=== PATIENT | female | born 1970 | race Caucasian/White ===

== ENCOUNTER 2017-07-06 10:39 | Emergency (ER) | payer OTHER ==
[~2017-07-06] VITALS: Ht 175.3 cm; Wt 98.9 kg
[~2017-07-06 10:39] MED LIST: ACETAMINOPHEN-1 EAC1 PO; ADDERALL 30 MG30 MG PO; ADVAIR; ADVAIR 250-501 EACH IH; ALLEGRA60 MG PO; ALTOPREV; ALTOPREV20 MG PO; AMBIEN 10 MG TA10 MG PO; AZITHROMYCIN 2250 MG PO; BACTRIM DS TAB1 EACH PO; CIPROFLOXACIN500 M1 PO; CIPROFLOXACIN500 M3 OR; CLEOCIN HCL300 MG PO; CLONAZEPAM; CRUTCH1 EACH MC; CYCLOBENZAPRINE10 MG; DOXEPIN 10 MG C10 M1; DOXYCYCLINE 10100 MG PO; FLAGYL500 MG PO; HYDROCODON-ACE1 EAC7 PO; IMITREX 50 MG T50 M1; KEFLEX500 MG PO; LAMICTAL XR200 MG PO; LIORESAL 10 MG10 MG PO; LUNESTA3 MG PO; MEDROL DOSPAK21 TA1 PO; NAPROSYN500 MG PO; NEURONTIN 300300 M1 PO; NORCO 5-325 TA1 EACH PO; NORCO 7.5-3251 EACH PO; PERCOCET 5-3251 EACH PO; PROAIR HFA8.5 GM IH; PROTONIX40 M2 PO; PYRIDIUM200 MG PO; REMERON30 M1; SEROQUEL XR 30300 M1 PO; SINGULAIR 10 MG10 M1 PO; TRILEPTAL 300300 MG PO; TRILEPTAL300 MG/5 M PO; ULTRAM50 MG PO; VALIUM5 MG PO; XANAX 0.5 MG0.5 M1 PO; XANAX XR1 MG; ZOFRAN ODT4 MG PO; ZOLOFT100 MG PO; ZYRTEC10 M2 PO
[2017-07-06 10:59] LABS: URINE BILIRUBIN NEGATIVE (Negative); URINE BLOOD NEGATIVE (Negative); URINE CLARITY CLEAR; URINE COLOR YELLOW; URINE GLUCOSE-RANDOM NEGATIVE (Negative); URINE KETONES NEGATIVE (Negative); URINE LEUKOCYTES-REFLEX NEGATIVE (Negative); URINE NITRITE-REFLEX NEGATIVE (Negative); URINE PROTEIN NEGATIVE (Negative); URINE UROBILINOGEN 0.2 E.U./dl (0.2-1.0)
[2017-07-06 11:43] LABS: ABSOLUTE BASOPHILS 0.1 thou/uL (0.0-0.2); ABSOLUTE EOSINOPHILS 0.2 thou/uL (0.0-0.7); ABSOLUTE LYMPHOCYTES 2.1 thou/uL (0.8-5.3); ABSOLUTE MONOCYTES 0.5 thou/uL (0.0-1.2); ABSOLUTE NEUTROPHILS 4.5 thou/uL (1.6-8.1); BASOPHILS 1.3 %; EOSINOPHILS 2.7 %; HEMOGLOBIN 14.2 gm/dL (12.0-15.0); LYMPHOCYTES 28.4 %; MCH 29.9 pg (26.0-34.0); MCHC 33.7 g/dL (28.0-37.0); MCV 88.5 fL (80.0-100.0); MONOCYTES 7.1 %; MPV 7.6 fl. (7.2-11.1); NUCLEATED RBCS 0 /100WBC; PLATELET COUNT* 267 thou/uL (150-400); POLYS 60.5 %; RBC 4.74 mil/uL (4.20-5.00); RDW-CV 13.6 % (10.5-14.5); WBC 7.4 thou/uL (4.0-11.0)
[2017-07-06 11:54] LABS: CALCIUM 8.6 mg/dL (8.5-10.1); CREATININE 0.7 mg/dL (0.6-1.3); POTASSIUM 3.7 mmol/L (3.5-5.1)
[2017-07-06 11:58] LABS: ALBUMIN 3.5 g/dL (3.4-5.0); TOTAL BILIRUBIN 0.3 mg/dL (<0.1-1.0); TOTAL PROTEIN 6.9 g/dL (6.4-8.2)
[2017-07-06] MEDS ORDERED: BENTYL 20 MG TA20 M1 PO (12:10)
[2017-07-06] MEDS ORDERED: ZOFRAN4 MG PO (12:10)
[2017-07-06 12:41] VITALS: BP 135/87
== END 2017-07-06 12:42 | disposition home or self-care (01) ==
LOC: M.ERS 10:39
PROVIDERS: Nurse Practitioner Family
DX: K52.9 Noninfective gastroenteritis and colitis, unspecified (principal); I10 Essential (primary) hypertension; F32.9 Major depressive disorder, single episode, unspecified; F41.9 Anxiety disorder, unspecified; F90.9 Attention-deficit hyperactivity disorder, unspecified type; M79.7 Fibromyalgia; J45.909 Unspecified asthma, uncomplicated; E78.00 Pure hypercholesterolemia, unspecified; G43.909 Migraine, unspecified, not intractable, without status migrainosus; F17.210 Nicotine dependence, cigarettes, uncomplicated; Z87.440 Personal history of urinary (tract) infections; Z90.89 Acquired absence of other organs

== ENCOUNTER 2017-09-16 16:14 | Emergency (ER) | payer OTHER ==
[~2017-09-16] VITALS: Ht 180.3 cm; Wt 104.3 kg
[~2017-09-16 16:14] MED LIST changes: +BENTYL 20 MG TA20 M1 PO; +ZOFRAN4 MG PO
[2017-09-16 17:27] LABS: ABSOLUTE BASOPHILS 0.1 thou/uL (0.0-0.2); ABSOLUTE EOSINOPHILS 0.2 thou/uL (0.0-0.7); ABSOLUTE LYMPHOCYTES 2.1 thou/uL (0.8-5.3); ABSOLUTE MONOCYTES 0.5 thou/uL (0.0-1.2); ABSOLUTE NEUTROPHILS 6.1 thou/uL (1.6-8.1); BASOPHILS 1.3 %; EOSINOPHILS 2.2 %; HEMATOCRIT 43.5 % (37.0-47.0); HEMOGLOBIN 14.6 gm/dL (12.0-15.0); MCHC 33.7 g/dL (28.0-37.0); MCV 89.1 fL (80.0-100.0); MPV 7.1 fl. (7.2-11.1); NUCLEATED RBCS 0 /100WBC; PLATELET COUNT* 332 thou/uL (150-400); POLYS 67.5 %; RBC 4.88 mil/uL (4.20-5.00); RDW-CV 13.4 % (10.5-14.5)
[2017-09-16 17:44] LABS: CALCIUM 9.3 mg/dL (8.5-10.1); CREATININE 0.9 mg/dL (0.6-1.3); POTASSIUM 3.7 mmol/L (3.5-5.1); TOTAL BILIRUBIN 0.6 mg/dL (<0.1-1.0); TOTAL PROTEIN 7.5 g/dL (6.4-8.2)
[2017-09-16 18:48] VITALS: BP 133/92
== END 2017-09-16 18:48 | disposition home or self-care (01) ==
LOC: M.ERS 16:14
PROVIDERS: Nurse Practitioner Family
DX: M79.604 Pain in right leg (principal); I10 Essential (primary) hypertension; F32.9 Major depressive disorder, single episode, unspecified; F41.9 Anxiety disorder, unspecified; M79.7 Fibromyalgia; J45.909 Unspecified asthma, uncomplicated; E78.00 Pure hypercholesterolemia, unspecified; F17.210 Nicotine dependence, cigarettes, uncomplicated; Z87.440 Personal history of urinary (tract) infections

== ENCOUNTER 2018-08-20 09:25 | Emergency (ER) | payer OTHER ==
[~2018-08-20] VITALS: Ht 180.3 cm; Wt 111.1 kg
[2018-08-20 09:34] VITALS: BP 144/96
[2018-08-20] MEDS ORDERED: NORCO 5-325 TA1 EACH PO (09:47)
[2018-08-20] MEDS ORDERED: ACYCLOVIR 800800 MG PO (09:47)
== END 2018-08-20 09:55 | disposition home or self-care (01) ==
LOC: M.ERS 09:25
DX: B02.9 Zoster without complications (principal); F17.210 Nicotine dependence, cigarettes, uncomplicated; I10 Essential (primary) hypertension; F32.9 Major depressive disorder, single episode, unspecified; F41.9 Anxiety disorder, unspecified; F98.8 Other specified behavioral and emotional disorders with onset usually occurring in childhood and adolescence; M79.7 Fibromyalgia; K58.9 Irritable bowel syndrome, unspecified; J45.909 Unspecified asthma, uncomplicated; E78.00 Pure hypercholesterolemia, unspecified; Z90.49 Acquired absence of other specified parts of digestive tract; Z90.89 Acquired absence of other organs; Z90.711 Acquired absence of uterus with remaining cervical stump

== ENCOUNTER → 2018-12-08 | Outpatient (CLI) | payer OTHER ==
[~2018-12-08] MED LIST changes: +ACYCLOVIR 800800 MG PO
== END ==
LOC: M.MRI 11-29 15:53
DX: M47.22 Other spondylosis with radiculopathy, cervical region (principal); M51.16 Intervertebral disc disorders with radiculopathy, lumbar region; M48.061 Spinal stenosis, lumbar region without neurogenic claudication; M12.88 Other specific arthropathies, not elsewhere classified, other specified site; M43.17 Spondylolisthesis, lumbosacral region; M51.27 Other intervertebral disc displacement, lumbosacral region; M43.13 Spondylolisthesis, cervicothoracic region; M50.11 Cervical disc disorder with radiculopathy, high cervical region; M48.02 Spinal stenosis, cervical region

== ENCOUNTER 2019-06-26 13:26 | Observation (INO) | payer OTHER ==
[~2019-06-26] VITALS: Ht 180.3 cm; Wt 117.9 kg
[2019-06-26 13:30] VITALS: BP 130/98
[2019-06-26 14:00] LABS: ABSOLUTE EOSINOPHILS 0.7 thou/uL (0.0-0.7); ABSOLUTE LYMPHOCYTES 3.3 thou/uL (0.8-5.3); ABSOLUTE MONOCYTES 0.6 thou/uL (0.0-1.2); ABSOLUTE NEUTROPHILS 6.1 thou/uL (1.6-8.1); BASOPHILS 0.2 %; EOSINOPHILS 6.5 %; HEMATOCRIT 44.2 % (37.0-47.0); HEMOGLOBIN 15.1 gm/dL (12.0-15.0); LYMPHOCYTES 30.3 %; MCH 30.6 pg (26.0-34.0); MCHC 34.2 g/dL (28.0-37.0); MCV 89.4 fL (80.0-100.0); MONOCYTES 5.8 %; MPV 7.3 fl. (7.2-11.1); NUCLEATED RBCS 0 /100WBC; PLATELET COUNT* 357 thou/uL (150-400); POLYS 57.2 %; RBC 4.94 mil/uL (4.20-5.00); RDW-CV 14.1 % (10.5-14.5); WBC 10.8 thou/uL (4.0-11.0)
[2019-06-26 14:09] LABS: CALCIUM 9.2 mg/dL (8.5-10.1); CREATININE 0.9 mg/dL (0.6-1.3); POTASSIUM 3.8 mmol/L (3.5-5.1)
[2019-06-26 14:10] LABS: APTT 26.6 Seconds (25.0-31.3); INR 1.1; PROTIME 10.8 Seconds (9.20-11.50)
[2019-06-26 14:20] LABS: TOTAL BILIRUBIN 0.6 mg/dL (<0.1-1.0); TOTAL PROTEIN 7.6 g/dL (6.4-8.2)
[2019-06-26] MEDS ORDERED: METOPROLOL SUCC25 M1 PO (15:30)
[2019-06-26 20:10] VITALS: BP 136/84
--- NOTE | 2019-06-26 20:11 | EKG ---
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1970 Requested By: Mary Reynolds Order Number: [id number] MD: Fidel Max Measurements Intervals [place] Rate: 118 P: 51 CO: 182 QRS: -9 QRSD: 99 T: 40 QT: 352 QTc: 494 Interpretive Statements Sinus tachycardia Premature atrial contractions Borderline prolonged QT interval Compared to ECG 01/20/2009 04:56:39 Sinus rhythm no longer present Electronically Signed On 06-26-2019 20:10:28 [employer] by Fidel Max [email or web address] <ELECTRONICALLY SIGNED> By: Fidel Max MD, FACC 06/26/192009 1349 1349 Fidel Max MD, FAC /EPI
--- NOTE | 2019-06-26 20:11 | EKG ---
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
[2019-06-26 20:38] VITALS: BP 112/82
[2019-06-26] MEDS ORDERED: METFORMIN HCL500 M3 PO (21:42)
[2019-06-26] MEDS ORDERED: ABILIFY 5 MG TAB5 MG PO (21:42)
[2019-06-26] MEDS ORDERED: DULOXETINE HCL60 MG PO (21:43)
[2019-06-26 21:53] VITALS: BP 123/68
[2019-06-27] VITALS: BP 125/78
[2019-06-27 04:00] VITALS: BP 118/64
--- NOTE | 2019-06-27 04:32 | NUR ---
ASSUMED CARE OF PT AT 2119 FROM THE ER. PT IS ALERT AND ORIENTED. VSS. PERRLA. NO COMPLAINTS OF PAIN. STEADY GAIT. UP AD KAYE. PT IS IN SINUS RYTHM ON THE TELEMETRY. PT IS RESTING COMFORTABLY IN BED. RESPIRATIONS ARE EVEN AND NONLABORED. WILL CONTINUE TO MONITOR PT.
[2019-06-27 06:13] LABS: HEMATOCRIT 41.2 % (37.0-47.0); HEMOGLOBIN 14.1 gm/dL (12.0-15.0); MCH 30.4 pg (26.0-34.0); MCHC 34.3 g/dL (28.0-37.0); MCV 88.6 fL (80.0-100.0); MPV 7.2 fl. (7.2-11.1); RBC 4.66 mil/uL (4.20-5.00); RDW-CV 14.3 % (10.5-14.5); WBC 11.7 thou/uL (4.0-11.0)
[2019-06-27 06:28] LABS: ALBUMIN 3.4 g/dL (3.4-5.0); CALCIUM 8.3 mg/dL (8.5-10.1); CREATININE 0.8 mg/dL (0.6-1.3); POTASSIUM 4.2 mmol/L (3.5-5.1); TOTAL BILIRUBIN 0.4 mg/dL (<0.1-1.0); TOTAL PROTEIN 6.7 g/dL (6.4-8.2)
[2019-06-27 07:54] VITALS: BP 129/84
--- NOTE | 2019-06-27 08:34 | NUR ---
ASSUMED CARE OF PT THIS AM AROUND 0715- GOLF COACH IN PLACE ORDERED, TRACING SR- UPON ASSESSMENT PT NOTED TO BE RESTING BED- PT A&O X4- CONT OF B/B- UP AD-KAYE IN ROOM, STEADY GAIT NOTED- VSS, O2 SAT 97% ON RA- LCTA, RESP EVEN AND UN-LABORED- ABD SOFT/ROUND/NON-TENDER, BS X4 QUADS- LAST BM REPORTED THIS AM- IV NOTED TO LEFT FA INTACT AND SL- BS MONITORED ORDERED- CARDIO CONSULT PENDING- PT RATES PAIN 6/10 TO HEAD, PRN TYLENOL GIVEN- CALL LIGHT AND PERSONAL BELONGINGS WITH IN REACH- PT MAKES NEEDS KNOWN- ALL NEEDS MET AT THIS TIME- WCTM
[2019-06-27 09:30] VITALS: BP 129/84
[2019-06-27] MEDS ORDERED: CARDIZEM CD120 MG PO (10:25)
[2019-06-27] MEDS ORDERED: ASA81BEC PO (10:29)
[2019-06-27 12:00] VITALS: BP 130/79
--- NOTE | 2019-06-27 13:17 | NUR ---
cm completed initial assessment to discuss d/c planning. pt is a&o. pt lives w/ b/f and two children. pt is active and she drives. independent w/cares. no dmes, no hx w/snf and had hh in past but does not recall which agency, has no preference. no anticipated needs at this time. cm to remain avail to assist.
[2019-06-27 16:00] VITALS: BP 127/82; BP 145/48
--- NOTE | 2019-06-27 16:50 | 2DMMODE ---
[place] [address] 2 D/M-MODE ECHOCARDIOGRAM Name: BREANA HERNANDEZ PARMINDER Room: [address] AbigailRIftikhar#: [id number] Admission: 06/26/19 Attend Phys: Shazia Luther, Discharge: Date of : 72 Date of Service: 06/27/19 1649 Report #: [id number] THIS REPORT FOR: cc: Rin Falk MD, Lin W. MD Holkins,Nemesio Hayes MD [facility] ~ APPROVED REPORT Study performed: 06/27/2019 11:08:54 EXAM: Comprehensive 2D, Doppler, and color-flow Echocardiogram Patient Location: In-Patient Room #: [facility] Status: routine BSA: 2.33 HR: 85 bpm BP: 129/84 mmHg Rhythm: NSR Other Information Study Quality: Good Indications Tachycardia 2D Dimensions IVSd: 9.07 (7-11mm) LVOT Diam: 23.20 (18-24mm) LVDd: 49.17 mm PWd: 8.65 (7-11mm) Ascending Ao: 36.03 (22-36mm) LVDs: 32.89 (25-40mm) Aortic Root: 30.79 mm Volumes Left Atrial Volume (Systole) LA ESV Index: 19.70 mL/m2 Aortic Valve AoV Peak Guzman.: 1.44 m/s AO Peak Gr.: 8.25 mmHg LVOT Max P.07 mmHg AO Mean Gr.: 4.28 mmHg LVOT Mean P.93 mmHg LVOT Max V: 1.23 m/s AO V2 VTI: 24.29 cm LVOT Mean V: 0.78 m/s RAZA (VTI): 3.95 cm2 LVOT V1 VTI: 22.68 [place] [address] 2 D/M-MODE ECHOCARDIOGRAM Name: BREANA HERNANDEZ Room: [address]#: [id number] Admission: 06/26/19 Attend Phys: Shazia Luther, Discharge: Date of : 72 Date of Service: 06/27/19 1649 Report #: [id number] Mitral Valve E/A Ratio: 0.76 MV Decel. Time: 213.41 ms MV E Max Guzman.: 0.78 m/s MV PHT: 61.89 ms MVA (PHT): 3.55 cm2 TDI E/Lateral E': 7.80 E/Medial E': 6.50 Medial E' Guzman.: 0.12 m/s Lateral E' Guzman.: 0.10 m/s Pulmonary Valve PV Peak Guzman.: 1.03 m/s PV Peak Gr.: 4.27 mmHg Tricuspid Valve RAP Estimate: 5.00 mmHg TR Peak Gr.: 18.51 mmHg RVSP: 23.00 mmHg PA Pressure: 23.00 mmHg Left Ventricle The left ventricle is normal size. There is normal LV segmental wall motion. There is normal left ventricular wall thickness. Left ventricular systolic function is normal. The left ventricular ejection fraction is within the normal range. LVEF is 60-65%. Grade I - abnormal relaxation pattern. Right Ventricle The right ventricle is normal size. The right ventricular systolic function is normal. Atria The left atrium size is normal. The right atrium size is normal. Aortic Valve The aortic valve is normal in structure. No aortic regurgitation is present. There is no aortic valvular stenosis. Mitral Valve The mitral valve is normal in structure. There is no mitral valve regurgitation noted. No evidence of mitral valve stenosis. Tricuspid Valve The tricuspid valve is normal in structure. Trace tricuspid regurgitation. [place] [address] 2 D/M-MODE ECHOCARDIOGRAM Name: BREANA HERNANDEZ Room: [address] M.R.#: [id number] Admission: 06/26/19 Attend Phys: Shazia Luther, Discharge: Date of : 72 Date of Service: 06/27/19 1649 Report #: [id number] Pulmonic Valve The pulmonary valve is normal in structure. Trace pulmonic regurgitation. Great Vessels The aortic root is normal in size. IVC is normal in size and collapses >50% with inspiration. Pericardium There is no pericardial effusion. <Conclusion> The left ventricle is normal size. There is normal left ventricular wall thickness. Left ventricular systolic function is normal. The left ventricular ejection fraction is within the normal range. LVEF is 60-65%. Grade I - abnormal relaxation pattern. The right ventricle is normal size. The left atrium size is normal. The aortic valve is normal in structure. The mitral valve is normal in structure. The tricuspid valve is normal in structure. IVC is normal in size and collapses >50% with inspiration. There is no pericardial effusion. There is normal LV segmental wall motion. <ELECTRONICALLY SIGNED> By: Nemesio Venegas MD, FACC 06/27/19 1649 48 48 Nemesio Venegas MD, FACC /INF
--- NOTE | 2019-06-29 11:30 | CON ---
[address] [address] CONSULTATION Name: BREANA HERNANDEZ Room: [address] M.R.#: [id number] Admission: 06/26/19 Attend Phys: Shazia Luther MD Discharge: 06/27/19 Date of : 72 Report #: [id number] THIS REPORT FOR: //name// cc: Rin Falk MD, Lin W. MD ~ THIS REPORT FOR: //name// CC: Shazia Falk DATE OF SERVICE: 06/27/2019 CARDIOLOGY CONSULTATION HISTORY OF PRESENT ILLNESS: The patient is a 49-year-old female, who has had periodic episodes of the sensation of rapid heartbeat. She particularly notes this when she climbs steps. She also notes it after ingesting Coca Cola or using her inhalers. Episodes last for about 15 minutes and typically remit. Her hand recorder suggests that it may run as high as 180 at times. She presented yesterday to her primary care physician's office and was referred to the emergency room for tachycardia. She demonstrated supraventricular tachycardia at a rate of 152. She received various atrioventricular anyi blocking agents, but ultimately responded to diltiazem and is on 60 mg every 6 hours without clinical recurrence in that setting. She denied chest pain and there is no history of antecedent myocardial infarction. She notes mild lightheadedness associated with the tachycardia without vincent syncope. Risk factors for coronary artery disease include cigarette smoking, hypercholesterolemia, diabetes, and family history of coronary artery disease. PAST MEDICAL HISTORY: Remarkable for weight excess, depression, chronic anxiety, fibromyalgia, and asthma. PAST SURGICAL HISTORY: There is a history of tonsillectomy, prior hysterectomy, and left knee surgery. FAMILY HISTORY: Remarkable for heart disease in her father and grandfather. SOCIAL HISTORY: The patient is and disabled. She smokes approximately a pack of cigarettes per day. REVIEW OF SYSTEMS: Remarkable [place] [address] CONSULTATION Name: BREANA HERNANDEZ Room: [address]#: [id number] Admission: 06/26/19 Attend Phys: Shazia Luther MD Discharge: 06/27/19 Date of : 72 Report #: [id number] RESPIRATORY: She notes cough with some sputum production, which is chronic. CARDIOVASCULAR: She notes the intermittent but relatively frequent palpitations occurring almost daily and lasting approximately 15 minutes. ENDOCRINE: She describes type 2 diabetes. ALLERGIC AND IMMUNOLOGIC: She notes seasonal allergies. PSYCHIATRIC: There is a history of depression and chronic anxiety. MUSCULOSKELETAL: She notes modest chronic arthritic complaints. EYES: She wears glasses. PHYSICAL EXAMINATION: GENERAL: Demonstrates an overweight, middle-aged female. VITAL SIGNS: Blood pressure is 129/84, pulse rate is 84, and respirations are 18 per minute. NECK: Jugular venous pressure is normal. Carotids are 1-2+. There is no thyromegaly. HEENT: There is no scleral icterus. CHEST: Clear. CARDIAC: Reveals normal first and second heart sounds without murmurs or gallops. ABDOMEN: Modestly obese. EXTREMITIES: Without edema with intact femoral, pedal, and radial pulses. There are no deformity or arthritic changes. No petechiae or ecchymoses are noted. LABORATORY DATA: Hemoglobin is 14.1, white blood cell count 11,700 with 366,000 platelets; sodium 144, potassium 4.2, BUN 11, creatinine 0.8; troponin I less than 0.06. DIAGNOSTIC STUDIES: EKGs, initial tracing revealed supraventricular tachycardia with rate of 152 and subsequent tracings have demonstrated sinus rhythm at normal rate with no ischemic ST-T changes. IMPRESSION: 1. Intermittent episodes of supraventricular tachycardia. 2. Diabetes. 3. Weight excess. 4. Tobacco habituation. RECOMMENDATIONS: As diltiazem is working in the 60 mg every 6-hour administration phenomenon, I would recommend changing her to a long-acting preparation in the form of diltiazem extended release 240 mg daily. I would continue aspirin 81 mg daily. I would avoid agents that tend to trigger the tachyarrhythmia including significant intake of large amounts of caffeine [place] [address] CONSULTATION Name: BREANA HERNANDEZ [address] [id number] Admission: 06/26/19 Attend Phys: Shazia Luther MD Discharge: 06/27/19 Date of : 72 Report #: [id number] regular beta agonist or bronchodilators except when necessary. This was discussed with the patient. Thank you for allowing us to see the patient in cardiovascular assessment. <ELECTRONICALLY SIGNED> By: Nemesio Venegas MD, FAC 06/29/19 1130 0945 1200Jodrew Venegas MD, FAC /nt
== END 2019-06-27 17:20 | disposition home or self-care (01) ==
LOC: M.ERS 13:26 → M.TBA-ER 16:33 → M.2W 16:33
PROVIDERS: Personal Emergency Response Attendant; ADMIT Internal Medicine
DX: R00.0 Tachycardia, unspecified (principal); R07.89 Other chest pain; F32.9 Major depressive disorder, single episode, unspecified; M79.7 Fibromyalgia; J45.909 Unspecified asthma, uncomplicated; I10 Essential (primary) hypertension; F41.9 Anxiety disorder, unspecified; K58.9 Irritable bowel syndrome, unspecified; I49.1 Atrial premature depolarization; R42 Dizziness and giddiness; R00.2 Palpitations; E78.00 Pure hypercholesterolemia, unspecified; F17.210 Nicotine dependence, cigarettes, uncomplicated; F98.8 Other specified behavioral and emotional disorders with onset usually occurring in childhood and adolescence

== ENCOUNTER 2020-09-17 08:35 | Emergency (ER) | payer OTHER ==
[~2020-09-17] VITALS: Ht 180.3 cm; Wt 104.3 kg
[~2020-09-17 08:35] MED LIST changes: +ABILIFY 5 MG TAB5 MG PO; +ASA81BEC PO; +CARDIZEM CD120 MG PO; +DULOXETINE HCL60 MG PO; +METFORMIN HCL500 M3 PO; +METOPROLOL SUCC25 M1 PO
[2020-09-17] MEDS ORDERED: TRIAMCINOLONE A80 G2 TOP (09:36)
[2020-09-17] MEDS ORDERED: HYDROCODON-ACE1 EAC7 PO (09:36)
[2020-09-17 09:42] VITALS: BP 134/84
== END 2020-09-17 09:43 | disposition home or self-care (01) ==
LOC: M.ERS 08:35
DX: L24.5 Irritant contact dermatitis due to other chemical products (principal); Z87.440 Personal history of urinary (tract) infections; I10 Essential (primary) hypertension; M79.7 Fibromyalgia; E78.00 Pure hypercholesterolemia, unspecified; K58.9 Irritable bowel syndrome, unspecified; J45.909 Unspecified asthma, uncomplicated; F17.210 Nicotine dependence, cigarettes, uncomplicated; Z90.711 Acquired absence of uterus with remaining cervical stump; Z90.89 Acquired absence of other organs